=== PATIENT | male | born 1935 | race Two or more races ===

== ENCOUNTER 2018-02-07 11:00 | Outpatient (CLI) | payer OTHER ==
[~2018-02-07 11:00] MED LIST: ATENOLOL25 MG; CARdura 2MG TABLET PO; LOTRIMIN TP; PLAVIX75 MG; PLAVIX75 MG PO; TENORMIN 25 MG PO; ULTRACET PO; XARELTO10 MG; ZANTAC150 MG PO
== END 2018-02-07 11:03 | disposition home or self-care (01) ==
LOC: NUCLEAR 11:00
DX: I83.213 Varicose veins of right lower extremity with both ulcer of ankle and inflammation (principal)

== ENCOUNTER 2018-08-02 12:34 | Inpatient (IN) | payer OTHER ==
[~2018-08-02] VITALS: Ht 154.9 cm; Wt 93.4 kg
[2018-08-02] MEDS ORDERED: ELIQUIS2.5 MG PO (12:46)
== END 2018-08-10 11:24 | disposition home or self-care (01) | DRG 300 ==
LOC: ER 12:34 → MEDI 14:04
PROC: B54DZZZ Ultrasonography of Bilateral Lower Extremity Veins (ICD-10-PCS; principal; 2018-08-02)
DX: I87.2 Venous insufficiency (chronic) (peripheral) (principal); L97.328 Non-pressure chronic ulcer of left ankle with other specified severity; L03.116 Cellulitis of left lower limb; I82.5Z2 Chronic embolism and thrombosis of unspecified deep veins of left distal lower extremity; B96.5 Pseudomonas (aeruginosa) (mallei) (pseudomallei) as the cause of diseases classified elsewhere; I73.89 Other specified peripheral vascular diseases; I48.0 Paroxysmal atrial fibrillation; I10 Essential (primary) hypertension; M54.5 Low back pain; E66.8 Other obesity; Z88.6 Allergy status to analgesic agent